=== PATIENT | female | born 1955 | race Caucasian/White ===

== ENCOUNTER 2023-01-10 01:15 | Day surgery (SDC) | payer OTHER, SELFPAY ==
[2023-01-01 08:43] VITALS: BMI 29.8
--- NOTE | 2023-01-09 13:15 | PM.HPGS ---
History of Present Illness History of Present Illness Consent: Risks, benefits, and alternatives have been discussed and questions answered. Patient agrees to proceed with procedure. Chief complaint: other fecal abnormalities (+cologuard) Narrative: Caitlyn Gonzalez is a 67 year old female serve Cologuard test. Review of Systems Review of Systems: All systems reviewed & are unremarkable except as noted in HPI and below PMFSH Family History Family History Mother Hypertension Family history of chronic obstructive pulmonary disease Sibling Hypertension Father Family history of chronic obstructive pulmonary disease Hypertension Social History Social History Smoking status: Never smoker Second hand tobacco smoke exposure: No Alcohol intake: current Drinks per week: 3 Substance use type: does not use Living arrangements: other Additional living arrangements comments: with sp Meds Home Medications and Allergies Home Medications Medication Instructions Recorded Confirmed Type felodipine 5 mg tablet,extended 5 mg PO DAILY #90 tabs 05/22/22 01/01/23 Rx release 24 hr lisinopril 40 mg tablet 40 mg PO DAILY #90 tabs 05/22/22 01/01/23 Rx levothyroxine 75 mcg tablet 75 mcg PO DAILY #90 tabs 08/22/22 01/01/23 Rx Allergies Allergy/AdvReac Type Severity Reaction Status Date / Time No Known Allergies Allergy Mild Verified 01/10/23 06:46 Exam Const: General: alert Orientation/consciousness: patient oriented x3 Resp: Auscultation: clear to auscultation bilaterally Cardio: Rhythm: regular rhythm GI: GI Palp: Yes Soft to palpation and No Tenderness to palpation present (GI) Neuro: General: patient oriented x3 Assessment and Plan Assessment and plan (1) Positive colorectal cancer screening using Cologuard test: Code(s): R19.5 - Other fecal abnormalities Status: Acute Assessment and Plan: Colonoscopy with possible biopsy or polypectomy or cautery or injection of substances.
[2023-01-10 06:48] VITALS: BP 157/90; PULSE 76; RESP 18; TEMP 36.4; O2SAT 99
[2023-01-10] MEDS: LACTATED RINGERS 1,000 ML 150 ML IV CONT (07:01)
--- NOTE | 2023-01-10 07:41 | WPDANESEPPF ---
Anes - Initial Pre Proc Eval Procedure: Operation Date: 01/10/23 08:00 Proposed Procedures p Colonoscopy - Fabien Osullivan MD Date/Time: 01/10/23 07:41 Surgeon: Fabien Osullivan MD Pre Op Diagnosis: other fecal abnormalities (+cologuard) Patient Data Age: 67 Gender: F Height: 1.7 m Weight: 84.4 kg Last Vital Signs Temp 97.6 F 01/10/23 06:48 Pulse 76 01/10/23 06:48 Resp 18 01/10/23 06:48 BP 157/90 H 01/10/23 06:48 Pulse Ox 99 01/10/23 06:48 O2 Del Method Room Air 01/10/23 06:48 Allergies Allergy/AdvReac Type Severity Reaction Status Date / Time No Known Allergies Allergy Mild Verified 01/10/23 06:46 Home Medications Medication Instructions Recorded Confirmed Type felodipine 5 mg tablet,extended 5 mg PO DAILY #90 tabs 05/22/22 01/01/23 Rx release 24 hr lisinopril 40 mg tablet 40 mg PO DAILY #90 tabs 05/22/22 01/01/23 Rx levothyroxine 75 mcg tablet 75 mcg PO DAILY #90 tabs 08/22/22 01/01/23 Rx Patient hx anesthesia problems: none Family hx anesthesia problems: none Results Review: All pre-operative results and documents have been reviewed as part of the pre-operative evaluation. [facility] Family History Family History Mother Hypertension Family history of chronic obstructive pulmonary disease Sibling Hypertension Father Family history of chronic obstructive pulmonary disease Hypertension Social History Social History Smoking status: Never smoker Second hand tobacco smoke exposure: No Alcohol intake: current Drinks per week: 3 Substance use type: does not use Living arrangements: other Additional living arrangements comments: with sp Anes - Eval Final PreProcedure Day of Procedure 01/10/23 07:41 Patient weight: normal Heart: regular rate and rhythm Lungs: clear to auscultation Airway: Mallampati scale class II Neurological: alert and oriented Last oral intake: >/= 8 hours ASA classification: II Emergent: no Anesthetic plan: proceed Anesthesia type and monitoring: general GIVS and standard monitoring Results Review: All pre-operative results and documents have been reviewed as part of the pre-operative evaluation. Informed Consent: The patient's anesthetic plan and its attendant risks and benefits were discussed with the patient/family/POA. Questions were solicited and answers provided to the satisfaction of the patient/family/POA.
[2023-01-10 08:22] VITALS: BP 93/59; PULSE 73; RESP 16; O2SAT 97
[2023-01-10 08:32] VITALS: BP 107/76; PULSE 52; RESP 16; O2SAT 100
[2023-01-10 08:42] VITALS: BP 125/76; PULSE 54; RESP 16; O2SAT 100
== END 2023-01-10 08:57 | disposition home or self-care (01) ==
PROVIDERS: PCP Internal Medicine; Visit Provider Internal Medicine Gastroenterology
PROC: 0DJD8ZZ Inspection of Lower Intestinal Tract, Via Natural or Artificial Opening Endoscopic (ICD-10-PCS; CPT 45378; principal; 2023-01-10 08:00)
DX: Z12.11 Encounter for screening for malignant neoplasm of colon (principal); K57.30 Diverticulosis of large intestine without perforation or abscess without bleeding; D12.0 Benign neoplasm of cecum; R19.5 Other fecal abnormalities
CPT/HCPCS: 45385; 45381; 88305; J2704; J7120